=== PATIENT | female | born 1990 | race Two or more races ===

== ENCOUNTER → 2024-03-25 | Outpatient (CLI) | payer MEDICAID, SELFPAY ==
--- NOTE | 2024-03-25 10:27 | XR_ITS ---
Examination: Complete OB ultrasound, less than 14 weeks, transabdominal Date and time of exam: March 25, 2024 1046 hours INDICATIONS: Light vaginal bleeding today and beginning 2 weeks ago Technique: Obstetrical ultrasound images less than 14 weeks performed via transabdominal imaging Findings: A normal shaped single intrauterine gestation is present in the uterus. pole 0.8 cm correspondences 6 weeks 5 days gestational age Cardiac motion 137 BPM Ultrasonographic survey of visible and placental structures unremarkable. Amniotic fluid volume appears appropriate for this estimated gestational age. Right ovary 4.0 cm arterial flow Left ovary 3.8 cm arterial flow IMPRESSION: Viable intrauterine gestation 6 weeks 5 days.
== END | disposition home or self-care (01) ==
PROVIDERS: PCP Nurse Practitioner Family; Referring Provider Obstetrics & Gynecology; Visit Provider Obstetrics & Gynecology
DX: O20.0 Threatened abortion (principal); Z3A.01 Less than 8 weeks gestation of pregnancy
CPT/HCPCS: 76801

== ENCOUNTER 2024-09-23 17:04 | Observation (INO) | payer MEDICAID, SELFPAY ==
[2024-09-23] VITALS (7 sets, daily range): BP systolic 107–128; BP diastolic 64–75; PULSE 83–109; RESP 16–98; TEMP 36.8; O2SAT 98; BMI 42.3
--- NOTE | 2024-09-23 09:33 | XR_ITS ---
Examination: Abdomen sonogram, Limited Date and time of exam: September 23, 2024 0949 hours INDICATIONS: Right upper abdominal pain beginning 2 months ago Technique: Real-time kennedy scale transabdominal sonographic images of the upper abdomen obtained. Findings: Multiple gallstones Normal gallbladder wall Normal common bile duct 0.3 cm Pancreatic head 2.9 cm Liver 18.1 cm smooth contour no focal liver lesions Normal hepatopedal portal venous oh Patent IVC IMPRESSION: Cholelithiasis, negative for cholecystitis Moderate hepatomegaly
[2024-09-23] MEDS: FLUCONAZOLE 150 MG TABLET PO (19:58)
== END 2024-09-23 20:05 | disposition home or self-care (01) ==
LOC: S4SX 19:27
PROVIDERS: Admitting Provider Obstetrics & Gynecology; Referring Provider Physician Assistant Medical; Visit Provider Obstetrics & Gynecology
DX: O99.613 Diseases of the digestive system complicating pregnancy, third trimester (principal); K80.20 Calculus of gallbladder without cholecystitis without obstruction; Z3A.34 34 weeks gestation of pregnancy
CPT/HCPCS: 59025; 59899; 76705; A9270

== ENCOUNTER 2024-09-27 08:49 | Observation (INO) | payer MEDICAID, SELFPAY ==
[2024-09-27 08:56] VITALS: BP 119/71; PULSE 90
--- NOTE | 2024-09-27 09:08 | XR_ITS ---
Examination: Complete OB ultrasound greater than 14 weeks Date and time of exam: September 27, 2024 0952 hours INDICATIONS: Onset vaginal bleeding today Findings: Viable intrauterine single fetus with single amniotic sac presentation cephalic spine posterior Cardiac motion 131 BPM Placenta anterior grade 2 Umbilical cord insertion 3 vessel seen Amniotic fluid index 7 cm Cervix 4.2 cm Ovaries obscured by bowel gas. Composite estimated gestational age based on BPD, head circumference, abdominal circumference, femur length is 36 weeks 3 days Estimated weight 3027 g. Survey of intracranial anatomy, spinal anatomy, abdominal anatomy, four-chamber heart performed with no abnormalities identified. Impression: Viable intrauterine gestation cephalic presentation Placenta anterior grade 2 no abruption.
[2024-09-27 09:09] VITALS: BP 119/71; PULSE 88; RESP 18; RESP 99; TEMP 36.8; BMI 41.8
== END 2024-09-27 11:20 | disposition home or self-care (01) ==
PROVIDERS: Admitting Provider Obstetrics & Gynecology; Visit Provider Obstetrics & Gynecology
DX: O46.93 Antepartum hemorrhage, unspecified, third trimester (principal); Z3A.36 36 weeks gestation of pregnancy
CPT/HCPCS: 59025; 59899; 76805

== ENCOUNTER 2024-10-28 05:45 | Inpatient (IN) | payer MEDICAID, SELFPAY ==
[2024-10-25 11:28] LABS: INR 1.0 (0.9-1.3); Partial Thromboplastin Time 23.3 Seconds (22.0-36.0); Prothrombin Time 10.6 Seconds (9.0-12.2)
[2024-10-25 11:39] LABS: Alanine Aminotransferase 17 U/L (10-49); Albumin, Serum 3.9 gm/dL (3.5-5.0); Albumin/Globulin Ratio 1.4 (1.2-2.2); Alkaline Phosphatase 104 U/L (46-116); Anion Gap 11 (7-16); Aspartate Amino Transferase 21 U/L (0-34); BUN/Creatinine Ratio 10 Ratio (12-20); Bilirubin,Total 0.5 mg/dL (0.3-1.2); Blood Urea Nitrogen 6 mg/dL (9-23); Calcium 9.7 mg/dL (8.3-10.6); Calcium (Corrected) 9.8 mg/dL (8.5-10.1); Carbon Dioxide 22.0 mMol/L (20.0-31.0); Chloride 104 mMol/L (98-107); Creatinine (Component) 0.6 mg/dL (0.6-1.3); Globulin 2.8 gm/dL (2.3-3.5); Glucose 86 mg/dL (74-106); Osmolality,Calculated 270 (275-295); Potassium 4.2 mMol/L (3.4-5.1); Sodium 137 mMol/L (136-145); Total Protein 6.7 gm/dL (5.7-8.2); eGFR > 60 See Note
[2024-10-25 12:03] LABS: Syphilis Nonreactive (Nonreactive)
[2024-10-25 12:58] LABS: Basophils # (Auto) 0.0 Thou/mm3 (0.0-0.2); Basophils % (Auto) 0 % (0-2.5); Eosinophils # (Auto) 0.1 Thou/mm3 (0.0-0.5); Eosinophils % (Auto) 1 % (0-10); Hematocrit 36.3 % (36.0-46.0); Hemoglobin 12.3 g/dL (12.0-16.0); Immature Granulocytes Auto 0.03 Thou/mm3 (0.00-0.00); Lymphocytes # (Auto) 1.6 Thou/mm3 (1.0-4.8); Lymphocytes % (Auto) 17 % (10-50); Mean Corpuscular HGB Conc 33.9 g/dl (31.0-37.0); Mean Corpuscular Hemoglobin 29.6 pg (25.0-35.0); Mean Corpuscular Volume 87 fL (80-100); Monocytes # (Auto) 0.5 Thou/mm3 (0.0-0.8); Monocytes % (Auto) 6 % (0-12); Neutrophils # (Auto) 7.0 Thou/mm3 (1.8-7.7); Neutrophils % (Auto) 76 % (37-80); Nucleated Red Blood Cell # 0.00 Thou/mm3 (0.00-0.00); Nucleated Red Blood Cell % 0 /100 WBC (0); Platelet Count 195 Thou/mm3 (140-440); RDW Standard Deviation 49.0 fL (36.4-46.3); Red Blood Count 4.16 Miln/mm3 (4.00-5.20); White Blood Count 9.2 Thou/mm3 (3.6-11.0)
--- NOTE | 2024-10-26 11:10 | ESHP_ITS ---
RE: YULIANA GILL : 1990 DATE OF ADMISSION: 10/28/2024 HISTORY OF PRESENT ILLNESS: This is a 34-year-old 5, para 2-0-2-2 with due date of 11/02/2024 with intrauterine at 39 weeks and 2 days on 10/28/2024, who presents for repeat delivery. The patient desires voluntary sterilization. She reports occasional contractions. She denies any leaking or bleeding. She reports normal movement. ALLERGIES: NO KNOWN DRUG ALLERGIES. MEDICATIONS: 1. multivitamin one p.o. daily. 2. Omeprazole 20 mg one p.o. daily. PAST MEDICAL HISTORY: Cholelithiasis. SOCIAL HISTORY: She denies any alcohol, drug use or smoking. OB HISTORY: In 2011, delivery, 40-week gestation 8 pounds, no complications. In 2021, 40-week delivery, 11-pound female, no complications. FAMILY HISTORY: Denies. REVIEW OF SYSTEMS: Denies any chest pain, palpitations, cough, fever, or shortness of breath or lower extremity pain. Denies any headache, change in vision or right upper quadrant pain. PHYSICAL EXAMINATION: VITAL SIGNS: Blood pressure 119/65, heart rate 88, respirations 18, temperature 98.6. Weight 244 pounds. HEENT: Oropharynx and sclerae are clear. LUNGS: Clear to auscultation bilaterally. HEART: Regular rate and rhythm. ABDOMEN: Gravid, term size. Old Pfannenstiel scar noted. EXTREMITIES: Nontender. SKIN: No gross rashes or lesions. NEUROLOGIC: No focal deficit. ASSESSMENT: Intrauterine at 39 weeks and 2 days. Previous delivery, elect to repeat delivery. Multiparity. Desires voluntary sterilization PLAN: Repeat delivery and bilateral tubal ligation. Informed consent was obtained. The patient was made aware of the risks, complications, alternatives, and benefits of the proposed procedure and she agrees. DT: : TT: 11:09:00 Ref: [id number] - TID: [id number] MTDD
[2024-10-28] VITALS (22 sets, daily range): BP systolic 99–128; BP diastolic 14–85; PULSE 56–108; RESP 15–21; TEMP 36.7–36.9; O2SAT 95–100; BMI 43.7
[2024-10-28 06:26] LABS: Basophils # (Auto) 0.0 Thou/mm3 (0.0-0.2); Basophils % (Auto) 0 % (0-2.5); Eosinophils # (Auto) 0.2 Thou/mm3 (0.0-0.5); Eosinophils % (Auto) 2 % (0-10); Hematocrit 34.6 % (36.0-46.0); Hemoglobin 11.6 g/dL (12.0-16.0); Immature Granulocytes Auto 0.05 Thou/mm3 (0.00-0.00); Lymphocytes # (Auto) 1.8 Thou/mm3 (1.0-4.8); Lymphocytes % (Auto) 19 % (10-50); Mean Corpuscular HGB Conc 33.5 g/dl (31.0-37.0); Mean Corpuscular Hemoglobin 29.6 pg (25.0-35.0); Mean Corpuscular Volume 88 fL (80-100); Monocytes # (Auto) 0.6 Thou/mm3 (0.0-0.8); Monocytes % (Auto) 6 % (0-12); Neutrophils # (Auto) 6.9 Thou/mm3 (1.8-7.7); Neutrophils % (Auto) 72 % (37-80); Nucleated Red Blood Cell # 0.00 Thou/mm3 (0.00-0.00); Nucleated Red Blood Cell % 0 /100 WBC (0); Platelet Count 177 Thou/mm3 (140-440); RDW Standard Deviation 49.0 fL (36.4-46.3); Red Blood Count 3.92 Miln/mm3 (4.00-5.20); White Blood Count 9.6 Thou/mm3 (3.6-11.0)
[2024-10-28 07:22] LABS: Syphilis Nonreactive (Nonreactive)
[2024-10-28] MEDS: METOCLOPRAMIDE INJ 5 MG/ML VIAL 2 ML 10 MG IVP (07:25)
[2024-10-28] MEDS: FAMOTIDINE INJ 10 MG/ML VIAL 2 ML 20 MG IV (07:26)
[2024-10-28 07:27] LABS: Amphetamine/Metham Scrn,Ur OB Negative (Negative); Benzoylecgonine Screen, Ur OB Negative (Negative); Opiate Screen,Urine OB Negative (Negative); THC Screen,Urine OB Negative (Negative)
[2024-10-28] MEDS: ceFAZolin/D5W 2 GM IV 2 GM/100 ML BAG IV (07:27)
--- NOTE | 2024-10-28 07:35 | PD.LDDS ---
DS: Providers Provider Date of admission: 10/28/24 05:45 Primary care physician: Physician No Primary/Family Admitting Provider: Roque Block MD Attending Provider on Admission: Roque Block MD Attending Provider on DC: Roque Block MD Discharging Provider: Roque Block MD DS: Diagnosis Problem List Completed Was Problem List Reviewed/Reconciled?: Yes Summary/Hosp Course Peripartum Data Procedures: Procedures Operation Date: 10/28/24 07:45 <No data on this case meets the specified criteria> Time Spent with Patient Time attestation: Total time spent providing and/or coordinating discharge services: Exam Vital Signs Temp Pulse Resp BP Pulse Ox O2 Del Method 98.5 F 88 18 117/59 L 100 Room Air 10/28/24 06:00 10/28/24 06:52 10/28/24 06:00 10/28/24 06:52 10/28/24 06:55 10/28/24 06:00 Discharge Plan Plan Patient Disposition: HOME (Self Care) Patient condition on transfer: Stable Prescriptions/Referrals Prescriptions/Med Rec: New hydrochlorothiazide 25 mg tablet 25 mg PO QDAY PRN (Reason: lower leg swelling.) Qty: 10 0RF ibuprofen 600 mg tablet 600 mg PO Q6H PRN (Reason: pain) Qty: 30 0RF Continued Vitamin 27 mg iron- 800 mcg tablet 1 tab PO QDAY Discontinued oxycodone-acetaminophen [Percocet] 5-325 mg tablet 1 tab PO Q8H MDD 15 PRN (Reason: pain) Qty: 20 0RF ibuprofen 600 mg tablet 600 mg PO Q8H PRN (Reason: pain) Qty: 30 0RF PNV no.95-ferrous fumarate-FA [] 28 mg iron- 800 mcg Tablet 1 tab PO QDAY Referrals: No Primary/Family,Physician [Primary Care Provider] Patient/Caregiver Discharge Instructions Discharge Activity: activity as tolerated Other Discharge Activity Instructions:: Follow up office 1 week Already has a Rx for hydrocodone. Education Materials: C Section Dc Print Language: [place] Islander Stand Alone Forms: Gretchen Award Info., Patient Portal Info Letter Discharge Order Discharge Orders: Discharge (Routine); Ordered 10/30/24 Ordered By: Roque Block Planned Discharge Date 10/30/24
--- NOTE | 2024-10-28 07:36 | PD.GYNPROC ---
Operative Note - CIRCULATION LIBRARIAN Procedure Date of procedure: 10/28/24 Procedure Performed: Repeat low-transverse section via Pfannenstiel skin incision Bilateral salpingectomy Lysis of pelvic adhesions Indication: Intrauterine at 39 weeks and 2 days Previous delivery elects repeat delivery Multiparity desires voluntary sterilization Pre-Op diagnosis: Intrauterine at 39 weeks and 2 days Previous delivery elects repeat delivery Multiparity desires voluntary sterilization Post-Op diagnosis: Intrauterine at 39 weeks and 2 days Previous delivery elects repeat delivery Multiparity desires voluntary sterilization Severe pelvic adhesions Endometriosis Adenomyosis Anesthesia type: Spinal Procedure description: After proper informed consent was obtained and the patient was made aware of the risks, complications, alternatives and benefits of the proposed procedure she was taken to the operating room where she underwent induction of spinal anesthesia. She was prepped and draped in the usual sterile fashion. A timeout was performed.? A Pfannenstiel skin incision was made with the scalpel and carried through to the underlying layer of fascia with the Bovie. The fascia was nicked in the midline incision and the incision was extended bilaterally with the Bovie. The inferior aspect of the fascial incision was grasped with Sangeeta clamps elevated and the underlying rectus muscle dissected off with the Bovie. The superior aspect the fascial incision was grasped with Sangeeta clamps elevated and the underlying rectus muscle dissected off with the Bovie. The rectus muscles were in the midline. The peritoneum was grasped between 2 Arnold clamps and entered sharply with the Metzenbaum scissors. There were dense adhesions making entry into the peritoneal cavity difficult. The dense adhesions were serially clamped with the Enseal X 1 large jaw , fulgurated and transected and hemostasis was acheived. The peritoneum was extended superiorly and inferiorly with good visualization of the bladder. The vesicouterine peritoneum was incised transversely and the bladder flap created digitally. A [place] blade was inserted. A low transverse incision was made in the uterus with a scapel and the incision was extended digitally. The 's head delivered and the mouth and nose were suctioned with the bulb suction. The shoulder and body delivered atraumatically. The cord was clamped after 30 second delayed cord clamping and the cord was cut.? The male was handed off to the waiting Pediatric staff, cord blood was collected for lab testing. The placenta was removed complete and intact. The uterus was exteriorized and cleared of all clots and debris. The uterine incision was closed with #1-0 chromic catgut suture in a running interlocking fashion. A second layer of the same suture was used to imbricate the first layer and obtain excellent hemostasis. The vesicouterine peritoneum was closed with 2-0 chromic catgut suture in a running fashion. Attention was turned to the left fallopian tube which was grasped at the fimbriated end with a Jean Claude clamp and using the Enseal X-1 large jaw a left salpingectomy was performed. Hemostasis achieved. Attention was turned to the right fallopian tube which was grasped at the fimbriated end with a Midkiff clamp and using the Enseal X-1 large jaw a left salpingectomy was performed. Hemostasis achieved. The firm uterus was returned to the abdomen. The gutters were cleared of all clots and debris. The adnexae were revisualized along with the lower uterine segment and all was hemostatic. The peritoneum was closed with 0 chromic catgut suture in running fashion. The rectus muscle was closed with 0 chromic catgut suture. The fascia was closed with 0 Vicryl beginning at each angle and ending in the center in a running fashion. The fascia was oversewn with 0-PDS suture. The subcutaneous tissue was irrigated with warmed normal saline solution and found to be hemostatic. The subcutaneous tissue was closed in two layers with 2-0 chromic catgut suture in a running fashion. The skin was closed with 4-0 Monocryl. A Dermabond Prineo dressing was applied and a sterile pressure dressing was applied.? She tolerated the procedure well. Counts were correct. I discussed with the patient the nature of her condition, intraoperative findings and expectation for recovery all questions answered. Specimen: left tube and right tube Estimated blood loss (ml): 800 Findings: Live Male Cephalic. APGARS: 8 and 9 Amniotic fluid clear Placenta removed complete and intact Endometriotic implants on both ovaries and uterosacral ligaments Denses adhesions of the anterior peritoenum to the anterior fundal aspect of the uterus. Complications: other (Uterus initial atonic but responded to uterotonics and TXA) Surgical staff Raul Oconnor, PASCU[address], Surgeon Operation Date: 10/28/24 07:45 <No data on this case meets the specified criteria> Diagnosis Discharge Diagnosis (1) delivery delivered: Status: Acute (2) Sterilization: Status: Acute (3) Endometriosis: Status: Acute (4) Adenomyosis of uterus: Status: Acute (5) Pelvic adhesive disease: Status: Acute Problem List Completed Was Problem List Reviewed/Reconciled?: Yes
[2024-10-28] MEDS: KETOROLAC INJ 30 MG/ML VIAL IVP (13:58)
[2024-10-28 14:03] LABS: Basophils # (Auto) 0.0 Thou/mm3 (0.0-0.2); Basophils % (Auto) 0 % (0-2.5); Eosinophils # (Auto) 0.1 Thou/mm3 (0.0-0.5); Eosinophils % (Auto) 1 % (0-10); Hematocrit 33.0 % (36.0-46.0); Hemoglobin 11.2 g/dL (12.0-16.0); Immature Granulocytes Auto 0.06 Thou/mm3 (0.00-0.00); Lymphocytes # (Auto) 1.7 Thou/mm3 (1.0-4.8); Lymphocytes % (Auto) 12 % (10-50); Mean Corpuscular HGB Conc 33.9 g/dl (31.0-37.0); Mean Corpuscular Hemoglobin 30.0 pg (25.0-35.0); Mean Corpuscular Volume 89 fL (80-100); Monocytes # (Auto) 0.7 Thou/mm3 (0.0-0.8); Monocytes % (Auto) 5 % (0-12); Neutrophils # (Auto) 11.2 Thou/mm3 (1.8-7.7); Neutrophils % (Auto) 82 % (37-80); Nucleated Red Blood Cell # 0.00 Thou/mm3 (0.00-0.00); Nucleated Red Blood Cell % 0 /100 WBC (0); Platelet Count 158 Thou/mm3 (140-440); RDW Standard Deviation 48.3 fL (36.4-46.3); Red Blood Count 3.73 Miln/mm3 (4.00-5.20); White Blood Count 13.7 Thou/mm3 (3.6-11.0)
[2024-10-28] MEDS: ONDANSETRON INJ 2 MG/ML INJ 2 ML 4 MG IVP (14:04)
[2024-10-28] MEDS: OXYTOCIN in NS 20 units 20 UNIT/1,000 ML BAG 125 UNIT IV (15:30)
[2024-10-28] MEDS: HYDROcodone/APAP 5/325 TABLET 2 TAB PO (20:23)
[2024-10-29] VITALS: BP 100/64; PULSE 95; RESP 18; TEMP 36.9; O2SAT 97
[2024-10-29] MEDS: RINGERS LACTATED 1000 ML 1,000 ML 100 ML IV (00:15)
[2024-10-29 04:00] VITALS: BP 107/73; PULSE 99; RESP 17; TEMP 36.9; O2SAT 95
[2024-10-29] MEDS: HYDROcodone/APAP 5/325 TABLET 2 TAB PO ×3 (04:05→23:16)
[2024-10-29] MEDS: IBUPROFEN TAB 400 MG TABLET 800 MG PO ×2 (07:03→16:39)
--- NOTE | 2024-10-29 07:47 | PD.LDPPPRG ---
Subjective Subjective Interval history: Patient denies any primary complaint Exam Vital Signs Temp Pulse Resp BP Pulse Ox O2 Del Method 98.5 F 99 17 107/73 95 Room Air 10/29/24 04:00 10/29/24 04:00 10/29/24 04:00 10/29/24 04:00 10/29/24 04:00 10/29/24 04:00 Routine Respiratory Exam Comments: Clear to auscultation bilaterally Routine Cardiovascular Exam Comments: Regular rate and rhythm Routine Abdominal Exam Comments: Nondistended dressing dry and intact fundus is firm Routine Extremities Exam Comments: Lower extremity edema Objective Labs 10/28/24 13:21 10/25/24 10:47 Labs: Laboratory Results - last 24 hr 09/23/24 10/28/24 10/28/24 17:25 06:12 13:21 WBC 13.7 H D RBC 3.73 L Hgb 11.2 L Hct 33.0 L MCV 89 MCH 30.0 MCHC 33.9 RDW Std Deviation 48.3 H Plt Count 158 Neut % (Auto) 82 H Lymph % (Auto) 12 [place] % (Auto) 5 Eos % (Auto) 1 Baso % (Auto) 0 Neut # (Auto) 11.2 H Lymph # (Auto) 1.7 [place] # (Auto) 0.7 Eos # (Auto) 0.1 Baso # (Auto) 0.0 Immature Gran # (Auto) 0.06 H Absolute Nucleated RBC 0.00 Immature Gran % 0 Nucleated RBC % 0 Ur Collection Type Cancelled Urine Color Cancelled Urine Clarity Cancelled Urine pH Cancelled Ur Specific [place] Cancelled Urine Protein Cancelled Urine Glucose (UA) Cancelled Urine Ketones Cancelled Urine Blood Cancelled Urine Nitrite Cancelled Urine Bilirubin Cancelled Urine Urobilinogen (Auto) Cancelled Ur Leukocyte Esterase Cancelled Urine RBC Cancelled Urine WBC Cancelled Ur Squamous Epith Cells Cancelled Ur Transition Epith Cell Cancelled Ur Renal Epithelial Cell Cancelled Calcium Carbonate Cryst Cancelled Calcium Phosphate Cryst Cancelled Calcium Oxalate Crystal Cancelled Leucine Crystals Cancelled Cystine Crystals Cancelled Uric Acid Crystals Cancelled Triple Phos Crystals Cancelled Tyrosine Crystals Cancelled Amorphous Crystals Cancelled Urine Bacteria Cancelled Cellular Casts Cancelled Epithelial Casts Cancelled Fatty Casts Cancelled Hyaline Casts Cancelled Granular Casts Cancelled Waxy Casts Cancelled Broad Casts Cancelled RBC Casts Cancelled Urine Mucus Cancelled Urine Trichomonas Cancelled Ur Yeast w Hyphae Cancelled Urine Yeast (Budding) Cancelled Urine Sperm Cancelled Ur Oval Fat Bodies Cancelled Blood Type A Positive Antibody Screen NEGATIVE Blood Bank Wristband ID Yes Impressions Impression: Postop day #1 status post delivery and bilateral salpingectomy with lysis of adhesions Lower extremity edema Hydrochlorothiazide as needed Remove dressing DC IV Encourage ambulation Possible discharge home tomorrow consult Assessment & Plan Problem List (1) delivery delivered: Status: Acute (2) Sterilization: Status: Acute (3) Endometriosis: Status: Acute (4) Adenomyosis of uterus: Status: Acute (5) Pelvic adhesive disease: Status: Acute Time Spent With Patient Time: Total time spent is greater than 50% in coordination of care (as documented) at patient's floor/unit and/or counseling patient:
[2024-10-29 08:20] VITALS: BP 103/70; PULSE 80; RESP 17; TEMP 36.8; O2SAT 96
[2024-10-29 08:42] VITALS: BP 103/70; PULSE 80
[2024-10-29] MEDS: DOCUSATE SOD 100 MG CAPSULE PO (08:42)
[2024-10-29] MEDS: ENOXAPARIN SOD INJ 40 MG/0.4 ML SYRINGE SC (08:43)
--- NOTE | 2024-10-29 11:44 | PC.SS ---
WELL TREATMENT OFFSIDER conducted bedside contact with the patient to address nursing referral indicating patient was late to care.? WELL TREATMENT OFFSIDER introduced self and role. WELL TREATMENT OFFSIDER reviewed basis of referral.? Patient confirmed late to care at 14 weeks.? Patient stated [facility] did not possess provider to schedule appointment prior to 12 week timeline.? Patient obtained OB services from Dr. Block.? Patient reports consistency with OB appointments.? , Eduardo; was delivered via .? Infant is the patient?s 3rd child.? Patient plans on combo feeding infant.? Patient is receiving WIC, SNAP and TANF.? Patient denies history of alcohol/drug abuse.? Patient denies history of CWS intervention.? Patient denies episodes of domestic violence.? Patient has access to appropriate supplies and equipment.? FOB Eduardo Webber will be involved in the rearing of the infant. ?Patient?s sister will provide transportation upon discharge.? Patient describes possessing support system consisting of FOB and family.? No further intervention required at this time, social work coordinator will be available to address any further concerns.? WELL TREATMENT OFFSIDER updated bedside nurse.?
[2024-10-29 12:15] VITALS: BP 124/84; PULSE 97; RESP 18; TEMP 36.4
[2024-10-29 19:10] VITALS: BP 105/70; PULSE 96; RESP 16; TEMP 36.9; O2SAT 96
[2024-10-30 03:40] VITALS: BP 133/88; PULSE 96; RESP 16; TEMP 36.8; O2SAT 97
[2024-10-30] MEDS: IBUPROFEN TAB 400 MG TABLET 800 MG PO (03:54)
[2024-10-30] MEDS: Milk Of Magnesia Susp 30 ML UDC PO (03:55)
[2024-10-30] MEDS: SIMETHICONE 80 MG CHEW PO (04:00)
--- NOTE | 2024-10-30 04:42 | ESPR_ITS ---
RE: YULIANA GILL : 1990 DATE OF SERVICE: 10/30/2024 Postop day number 2. The patient denies any problem or complaint. She is voiding. She is ambulating. She is tolerating regular diet. She is passing flatus. She denies any excessive vaginal bleeding. She denies any dizziness or lightheadedness. She denies any chest pain, palpitations, shortness of breath or lower extremity pain. OBJECTIVE: Vital Signs: Blood pressure 133/88, heart rate 96, respirations 16, temperature is 98.2, pulse oximetry is 97% on room air. Lungs: Clear to auscultation bilaterally. Heart: Regular rate and rhythm. Abdomen: Incision clear and intact. Fundus is firm. Extremities: Nontender. ASSESSMENT: Postoperative day number 2, status post delivery, bilateral salpingectomy and lysis of adhesions. PLAN: Discharge home. Discharge instructions given. Follow up in the office in 1 week. DT: 04:30:56 TT: 04:40:00 Ref: [id number] - TID: [id number]
[2024-10-30 08:32] VITALS: BP 116/77; PULSE 92; RESP 20; TEMP 36.7; O2SAT 97
[2024-10-30] MEDS: ENOXAPARIN SOD INJ 40 MG/0.4 ML SYRINGE SC (08:49)
[2024-10-30 08:50] VITALS: BP 116/77; PULSE 92
[2024-10-30] MEDS: DOCUSATE SOD 100 MG CAPSULE PO (08:50)
[2024-10-30] MEDS: HYDROcodone/APAP 5/325 TABLET 2 TAB PO (10:55)
--- NOTE | 2024-11-09 10:00 | OBDSUM_ITS ---
Data (Henson) Data Hx Section: Yes : 5 Term: 2 : 0 Livin Abortions: Spontaneous & Theraputic: 0 Delivery Data (Henson) Labor Data Induction/Augmentation Agent: None ROM date: 10/28/24 ROM time: 08:13 Amniotic membrane rupture type: Artificial Amniotic fluid description: Clear Delivery Data Onset of labor date: 10/28/24 Onset of labor time: 08:13 Complete dilation date: 10/28/24 Complete dilation time: 08:13 Nettie delivery date: 10/28/24 delivery time: 08:14 Placenta delivery date: 10/28/24 Placenta delivery time: 08:15 Stage 1 total time: Labor - Stage 1 Duration 0 minutes Delivered by: [place] Delivery nurse: Bijan Harris RN [place] nurse: Kevin Riojas RN Supervisor [employer] at delivery: Yes Support person(s) at delivery: no support person Other staff at delivery: see or record Delivery Method Delivery method: Low Transverse Presentation: Vertex Anesthesia Type Anesthesia Type: Spinal Anesthesia type: Spinal Placenta Placenta delivery description: Manual Removal Cord blood sent to lab: Yes cord blood collection: Cord Blood Type Umbilical Cord cord description: 3 Vessels Data (Henson) Nettie Data order: 1 's gender: Male weight (gms): 9 lb 15.791 oz Weight (pounds): 9 lbs and 15.8 ozs Nettie length: 22 in 1 minute: 8 5 minutes: 9
== END 2024-10-30 11:35 | disposition home or self-care (01) | DRG 539 ==
LOC: S4SX 07:31 → S4NX 07:42
PROVIDERS: Admitting Provider Specialist; Visit Provider Specialist
PROC: 0UL70ZZ Occlusion of Bilateral Fallopian Tubes, Open Approach (ICD-10-PCS; CPT 59514; principal; 2024-10-28 07:30)
DX: O34.211 Maternal care for low transverse scar from previous cesarean delivery (principal); Z30.2 Encounter for sterilization; Z37.0 Single live birth; Z3A.39 39 weeks gestation of pregnancy; N73.6 Female pelvic peritoneal adhesions (postinfective); O99.892 Other specified diseases and conditions complicating childbirth; N80.03 Adenomyosis of the uterus; K66.0 Peritoneal adhesions (postprocedural) (postinfection)
CPT/HCPCS: 36415; 80053; 80307; 81001; 85025; 85610; 85730; 86780; 86850; 86900; 86901; A4217; A4649; J0689; J1650; J1885; J2210; J2274; J2371; J2405; J2590; J2765; J3010; J3490; J7120; S0191; A9270; J2270

== ENCOUNTER → 2025-01-15 | Outpatient (CLI) | payer MEDICAID, SELFPAY ==
--- NOTE | 2025-01-15 16:00 | XR_ITS ---
Examination: Abdomen sonogram, Limited Date and time of exam: January 15, 2025, 1603 hours INDICATIONS: Right upper abdominal pain beginning 1 year ago Technique: Real-time kennedy scale transabdominal sonographic images of the upper abdomen obtained. Findings: Multiple gallstones Gallbladder wall 0.2 cm no edema Common bile duct 0.2 cm Pancreatic head 2.5 cm Liver 15.4 cm no liver lesions Normal hepatopetal portal venous flow Patent IVC IMPRESSION: Cholelithiasis, negative for cholecystitis Normal common bile duct
== END | disposition home or self-care (01) ==
PROVIDERS: PCP Specialist; Referring Provider Specialist; Visit Provider Specialist
DX: K80.20 Calculus of gallbladder without cholecystitis without obstruction (principal)
CPT/HCPCS: 76705